=== PATIENT | female | born 1955 ===

== ENCOUNTER 2019-04-10 09:20 | Observation (INO) | payer MEDICARE ==
[~2019-04-10] VITALS: Ht 167.6 cm; Wt 74.0 kg
[2019-04-10] MEDS ORDERED: normal saline 1000ML IV soln IVB ONE (09:30)
[2019-04-10 10:35] LABS: CLARITY,URINE CLEAR (Clear); COLOR,URINE YELLOW (Yellow); GLUCOSE, URINE NEGATIVE (Neg); KETONES,URINE NEGATIVE (Neg); LEUKOCYTE ESTERASE ,URINE NEGATIVE (Neg); NITRITES, URINE NEGATIVE (Neg); OCCULT BLOOD,URINE NEGATIVE (Neg); PROTEIN,URINE NEGATIVE (Neg); UROBILINOGEN,URINE 0.2 E.U/dL (0.2-1.0)
[2019-04-10 10:38] LABS: UA COLLECTION TYPE STRAIGHT CATH
[2019-04-10 10:40] LABS: BASOPHILS # (AUTO) 0.1 X10'3 (0-0.2); BASOPHILS % (AUTO) 0.5 % (0-1); EOSINOPHILS % (AUTO) 0.4 % (0-6); HEMATOCRIT 41.2 % (35.0-45.0); HEMOGLOBIN 13.9 g/dl (12.0-16.0); LYMPHOCYTES # (AUTO) 1.4 X10'3 (1.1-4.8); LYMPHOCYTES % (AUTO) 12.8 % (21-51); MEAN CORPUSCULAR HGB CONC 33.8 g/dL (33.0-36.5); MEAN CORPUSCULAR VOLUME 88.6 FL (78-98); MEAN PLATELET VOLUME 7.7 FL (7.4-10.4); MONOCYTES # (AUTO) 0.5 X10'3 (0-0.9); MONOCYTES % (AUTO) 4.9 % (2-12); NEUTROPHILS % (AUTO) 81.4 % (42-75); PLATELET COUNT 260 X10'3 (140-440); RED BLOOD COUNT 4.65 X10'6 (4.20-5.60); RED CELL DISTRIBUTION WIDTH 13.8 % (11.5-14.5); WHITE BLOOD COUNT 11.1 X10'3 (4.5-11.0)
[2019-04-10 10:46] LABS: URINE AMPHETAMINE SCREEN POSITIVE (Neg); URINE BARBITUATE SCREEN NEGATIVE (Neg); URINE BENZODIAZEPINES SCREEN NEGATIVE (Neg); URINE CANNABINOID SCREEN NEGATIVE (Neg); URINE COCAINE SCREEN NEGATIVE (Neg); URINE METHADONE SCREEN NEGATIVE (Neg); URINE OPIATE SCREEN NEGATIVE (Neg); URINE PHENCYCLIDINE SCREEN NEGATIVE (Neg)
[2019-04-10 10:51] LABS: ALANINE AMINOTRANSFERASE 21 U/L (12-78); ALBUMIN 3.8 G/DL (3.4-5.0); ALKALINE PHOSPHATASE 84 IU/L (46-116); ANION GAP 10 (8-16); ASPARTATE AMINO TRANSFERASE 12 U/L (10-37); BILIRUBIN,TOTAL 0.4 MG/DL (0.1-1.0); BLOOD UREA NITROGEN 12 MG/DL (7-18); CALCIUM 10.2 MG/DL (8.5-10.1); CHLORIDE 109 MMOL/L (99-107); CREATININE 0.86 MG/DL (0.40-0.90); GLUCOSE 115 MG/DL (70-104); POTASSIUM 3.7 MMOL/L (3.5-5.1); SODIUM 145 MMOL/L (135-145); TOTAL CARBON DIOXIDE 26.1 MMOL/L (24-32); TOTAL PROTEIN 7.6 G/DL (6.4-8.2); eGFR 67 ML/MIN
[2019-04-10 10:53] LABS: ETHANOL < 0.010 GM/DL (0.0-0.010); TROPONIN I < 0.04 NG/ML (0.0-0.05)
--- NOTE | 2019-04-10 10:53 | NUR ---
break RN: patient on bed awake.Call light within reach.
[2019-04-10 10:54] LABS: PARTIAL THROMBOPLASTIN TIME 24 SECONDS (22-32)
--- NOTE | 2019-04-10 12:21 | NUR ---
DR LIRA ATTEMPTED TO CALL FAMILY FOR PT TO INQUIRE ABOUT PT BASELINE AND MED HX. THE ONLY PHONE NUMBER FOUND WAS ON THE RUN SHEET. WHEN CALLED IT WAS NOTED THE VOICEMAIL WAS PT PHONE. WHEN ASKED PT STATES THE [phone] IS HER CELL PHONE NUMBER. PT STATES SHE LIVES WITH HER MOTHER AND HER MOTHER DOES NOT HAVE A CELL PHONE OR A LAND LINE. [facility] [place] TO INQUIRE THE PHONE NUMBER OF RP OF INITIAL 911 CALL. INFORMED THE CALL CAME FROM PTS CELL PHONE NUMBER. UNABLE TO CONTACT ANY FAMILY OR FRIENDS
[2019-04-10] MEDS ORDERED: magnesium hydroxide 30ml (MOM) UD suspension PO PRN (12:35)
[2019-04-10] MEDS ORDERED: acetaminophen 650mg rectal suppository RC PRN (12:35)
[2019-04-10] MEDS ORDERED: morphine 2 MG/ML inj. syringe IV PRN ×2 (12:35)
[2019-04-10] MEDS ORDERED: ondansetron/PF 4mg/2ml inj IV PRN (12:35)
[2019-04-10] MEDS ORDERED: mag hydrox/Alum hydrox/simeth 30ml oral suspension PO PRN (12:35)
--- NOTE | 2019-04-10 12:40 | NUR ---
relieving RN for lunch, pt is resting quietly on gurney, resp even and unlabored, waiting for bed assisgnment,
[2019-04-10] MEDS: dextrose 5%-1/2 normal saline 1,000 ML IV SCH (13:08)
[2019-04-10] MEDS ORDERED: NO HOME MEDS (13:13)
--- NOTE | 2019-04-10 15:57 | NUR ---
I have received patient report from Araceli FLORES
[2019-04-10 16:20] VITALS: BP 170/100
[2019-04-10] MEDS ORDERED: hydrALAZINE 20mg/ml inj. IV PRN (17:05)
[2019-04-10 18:00] VITALS: BP 174/109
--- NOTE | 2019-04-10 18:41 | NUR ---
Patient report given to Pravin FLORES
[2019-04-10] MEDS ORDERED: hydrALAZINE 20mg/ml inj. IV SCH (20:00)
[2019-04-10 22:00] VITALS: BP 156/82
[2019-04-11] MEDS: dextrose 5%-1/2 normal saline 1,000 ML IV SCH
[2019-04-11] MEDS: acetaminophen 325mg tablet PO PRN ×2 (04:44→11:38)
[2019-04-11 05:59] LABS: BASOPHILS # (AUTO) 0.1 X10'3 (0-0.2); BASOPHILS % (AUTO) 0.5 % (0-1); EOSINOPHILS # (AUTO) 0.2 X10'3 (0-0.9); EOSINOPHILS % (AUTO) 1.7 % (0-6); HEMATOCRIT 39.8 % (35.0-45.0); HEMOGLOBIN 13.6 g/dl (12.0-16.0); LYMPHOCYTES # (AUTO) 2.9 X10'3 (1.1-4.8); LYMPHOCYTES % (AUTO) 27.5 % (21-51); MEAN CORPUSCULAR HEMOGLOBIN 30.2 PG (27.0-31.0); MEAN CORPUSCULAR HGB CONC 34.1 g/dL (33.0-36.5); MEAN CORPUSCULAR VOLUME 88.7 FL (78-98); MEAN PLATELET VOLUME 7.7 FL (7.4-10.4); MONOCYTES # (AUTO) 0.8 X10'3 (0-0.9); MONOCYTES % (AUTO) 7.3 % (2-12); NEUTROPHILS # (AUTO) 6.7 X10'3 (1.8-7.7); PLATELET COUNT 248 X10'3 (140-440); RED BLOOD COUNT 4.49 X10'6 (4.20-5.60); RED CELL DISTRIBUTION WIDTH 13.6 % (11.5-14.5); WHITE BLOOD COUNT 10.6 X10'3 (4.5-11.0)
[2019-04-11 06:10] VITALS: BP 139/81
--- NOTE | 2019-04-11 06:21 | NUR ---
I have received patient report from Pravin FLORES
[2019-04-11 06:46] LABS: ALANINE AMINOTRANSFERASE 22 U/L (12-78); ALBUMIN 3.2 G/DL (3.4-5.0); ALBUMIN/GLOBULIN RATIO 0.9 (1.1-1.5); ALKALINE PHOSPHATASE 80 IU/L (46-116); ANION GAP 10 (8-16); ASPARTATE AMINO TRANSFERASE 15 U/L (10-37); BILIRUBIN,TOTAL 0.3 MG/DL (0.1-1.0); BLOOD UREA NITROGEN 6 MG/DL (7-18); BUN/CREATININE RATIO 8.2 (6.6-38.0); CALCIUM 8.4 MG/DL (8.5-10.1); CHLORIDE 105 MMOL/L (99-107); CHOL/HDL RATIO 3.6 (0.00-4.99); CHOLESTEROL 226 MG/DL (0-200); CREATININE 0.73 MG/DL (0.40-0.90); GLUCOSE 111 MG/DL (70-104); HDL CHOLESTEROL 62 MG/DL (35-60); LDL CHOLESTEROL 151 MG/DL (50-100); POTASSIUM 3.6 MMOL/L (3.5-5.1); SODIUM 140 MMOL/L (135-145); TOTAL CARBON DIOXIDE 24.9 MMOL/L (24-32); TOTAL PROTEIN 6.7 G/DL (6.4-8.2); TRIGLYCERIDES 175 MG/DL (20-135); eGFR 81 ML/MIN
[2019-04-11 10:00] VITALS: BP 119/81
--- NOTE | 2019-04-11 17:00 | NUR ---
Patient discharged to taught to follow up with in [place] to get eeg results and told not to drive per Dr. Warner untill eeg comes back. Patient taken out in wheel chair and had a friend pick her up.
== END 2019-04-11 17:00 | disposition home or self-care (01) ==
LOC: ER 09:20 → ED HOLD 12:57 → ORTHO 4S 16:10
PROVIDERS: ADMIT Internal Medicine; ATTEND Internal Medicine
DX: R42 Dizziness and giddiness (principal); R11.0 Nausea; J45.909 Unspecified asthma, uncomplicated; F17.210 Nicotine dependence, cigarettes, uncomplicated; F15.10 Other stimulant abuse, uncomplicated
CPT/HCPCS: 36415; 70450; 71045; 72125; 80053; 80061; 80305; 80320; 81003; 82140; 82948; 83880; 84484; 85025; 85610; 85730; 87081; 93005; 95816; 96361; 96374; 97161; 97530; 99284; G0378; J2405